=== PATIENT | male | born 1950 | race Caucasian/White ===

== ENCOUNTER 2021-05-05 12:44 | Inpatient (IN) | payer MEDICARE, SELFPAY ==
[2021-05-05] VITALS (65 sets, daily range): BP systolic 100–143; BP diastolic 64–92; PULSE 60–114; RESP 15–35; TEMP 36.7; O2SAT 90–100; BMI 26.6
--- NOTE | 2021-05-05 12:47 | XACV_ITS ---
Ht: 165 cm Wt: 68 kg BSA: 1.78 m2 Gender: Male : 1950 Exam Priority: Routine Procedure(s): Procedure Description: Diagnostic procedure Procedure Description: PCI procedure Procedure Description: Drug Eluting Coronary Stent Procedure Description: PTCA Procedure Description: Miscellaneous Procedure Description: ACT Procedure Description: Coronary Angiography Ranjit GIBBS; Diagnostic Cath Status: Emergency Diagnostic Findings * Left Main has no disease. * Circumflex has no disease. * Proximal Left Anterior Descending: moderate 50% stenosis, ROSIE: 3 flow. * Distal Right Coronary Artery: total occlusion, ROSIE: 0 flow. * Distal Right Coronary Artery: total occlusion, ROSIE: 0 flow. * Coronary angiography shows right dominance. PCI Status: Emergency PCI Indication: STEMI - Immediate PCI for STEMI Interventional Findings * Distal Right Coronary Artery: 100% stenosis treated with a Drug Eluting Stent. 0% residual stenosis, ROSIE: 3 flow. * Distal Right Coronary Artery: 100% stenosis treated with a Drug Eluting Stent. 0% residual stenosis, ROSIE: 3 flow. Conclusions 1. Distal Right Coronary Artery was treated with a Drug Eluting Stent. 2. Distal Right Coronary Artery was treated with a Drug Eluting Stent. 3. There is total occlusion coronary artery disease with two vessel disease. Recommendations * 1-Return to inpatient for close monitoring and routine cath care 2-Risk factor modification for secondary prevention 3-Statin with LDL goal <70 mg/dl, aspirin 81 mg life-long 4-Patient was pre-loaded with 180mg of Brillinta. Continue Brillinta 90mg p.o. twice daily for at least one year. We will assess at the end of one year again to continue it further or not 5-Continue optimal medical management 6-Follow up with Dr. Church in four weeks and with your PCP in one week. Interventional RX Recommendation: PCI w/o planned CABG Diagnostic RX Recommendation: PCI w/o planned CABG Pressures Phase:Rest AO : 75 / 39 ( 54 ) @ 11:11:00 AM 97 / 62 ( 78 ) @ 11:17:00 AM Clinical Evaluation EBL: 5mL-10mL Procedural Details The risks, benefits, and alternatives of sedation and/or procedure were discussed by physician. The patient agrees to continue. Procedure started. Pre-Procedure Time Out. Identified patient by full name and date of as verbalized by the patient/guarantor. Does the consent match the physician's order: Yes. Accurate & Complete Informed Consent: Yes. Inpatient/Outpatient History & Physical on Chart: Yes. If H&P is completed, is and addenduem needed: N/A; If yes, is the addendum complete: N/A Emergent. Visualize and Verify Site with Patient/Guarantor: N/A. Relevant Radiology Images available: N/A. Pre-op teaching completed and patient verbalized understanding. The risks, benefits, and alternatives of sedation and/or procedure were discussed by physician. The patient agrees to continue. [facility] Clinical Fraility Score: 4: Vulnerable. Rivet Tester Indications: ACS <= 24 hours. Chest Pain Symptom Assessment: Atypical Angina. Correct patient, site and procedure confirmed by cath team. Current diagnosis: STEMI. PERRLA. Strong, equal hand brusher hand bilaterally. Lungs clear x 5 lobes. IV Site on Arrival: 20 gauge in the right anticubital. IV Fluids: 0.9% NaCl at KVO. 0 mL infused prior to cardiac catheterization technician. Pre Procedural Pulses: bilateral radial was 3+. Oxygen started at 2liters/min via nasal canula. Physician arrived. Physician scrubbed in. Immediate Pre-Procedure Time Out. Correct Patient: Yes; Correct Procedure: Yes; Correct Site: Yes; Correct Patient Position: Yes; Correct Supplies: Yes; Dried Flammable Prep:YES Blood Products Available: N/A;. Lidocaine 1% infiltrated to the right radial. Arterial access obtained. 6 cambodian JR 4 SH guide catheter was inserted over the wire. Multiple views taken of right coronary artery. [place] guidewire was advanced through the guide catheter to lesion in the mid RCA. Balloon inserted to lesion in the mid RCA. Inflation number : 1 A AB TREK 2.50X12 RX BALLOON was prepped and advanced across the Mid RCA , then inflated to 14 CHARLES for 0:11 seconds. Results checked. Inflation number: 2 The AB TREK 2.50X12 RX BALLOON was reinflated across the Mid RCA, to 8 CHARLES for 0:05 seconds. Inflation number: 3 The AB TREK 2.50X12 RX BALLOON was reinflated across the Mid RCA, to 8 CHARLES for 0:05 seconds. Inflation number: 4 The AB TREK 2.50X12 RX BALLOON was reinflated across the Mid RCA, to 8 CHARLES for 0:06 seconds. Results checked. Balloon out. Stent inserted to lesion in the mid RCA. Inflation Number : 5 A MDT R BLANE 3.0X30 VENESSA -Lot Number# Lot #[id number] Exp 09/12/2022was prepped and advanced across the Mid RCA. The stent was deployed at 14 CHARLES for 0:30 seconds. Stent balloon out over wire. Results checked. Stent inserted to lesion in the distal RCA. Inflation Number : 6 A MDT R BLANE 3.5X15 VENESSA -Lot Number# [id number] Exp 02/15/2024 was prepped and advanced across the Mid to distal RCA. The stent was deployed at 12 CHARLES for 0:25 seconds. Stent balloon and wire out. Results checked. Balloon inserted to lesion in the mid RCA. Inflation number : 7 A MDT NC EUPHORA RX 4.47F24OR BALLOON was prepped and advanced across the Mid RCA , then inflated to 8 CHARLES for 0:30 seconds. Inflation number: 8 The MDT NC EUPHORA RX [id number] BALLOON was reinflated across the Mid RCA, to 12 CHARLES for 0:20 seconds. Balloon out. Results checked. Guide catheter out. Wire out. A 5 cambodian TIG catheter in over wire. ACT drawn. Results 216 seconds. Therapeutic limits - pre-heparin administration 90-150 seconds and monitoring heparin during a vascular procedure >250 seconds. Multiple views taken of left coronary artery. Catheter out. A TR Band was successful obtaining hemostatsis at the Right Radial artery insertion site. Post Procedure: Pulses reassessed and unchanged. PERRLA. Strong, equal hand brusher hand bilaterally. No VTE prophylaxis required. Medication's Wasted: Lidocaine 1% = 18 mL. Medication's Wasted: Nitro = 49.8 mg. Total IV fluids: 50 mL. PCI Indication: STEMI. Complications: none. Post-op diagnosis: STEMI, RCA occlusion. Estimated blood loss: 5mL-10mL. Procedure completed. Patient transferred by wheelchair to 1st floor. Vital chart was stopped. Access Site Site: Right Radial artery Sheath Size: 6 Fr Hemostasis Method: TR Band Hemostasis Success: Successful Procedure Medications Start: 12:58 PM Stop: 12:58 PM Medication: Versed Amount: 1 mg Route: I.V. Start: 12:58 PM Stop: 12:58 PM Medication: Fentanyl Amount: 50 mcg Route: I.V. Start: 1:00 PM Stop: 1:00 PM Medication: Nitrogylcerin Amount: 200 mcg Route: I.A. Start: 1:00 PM Stop: 1:00 PM Medication: 0.9% Saline Amount: 250 ml Route: I.V. bolus Start: 1:01 PM Stop: 1:01 PM Medication: Heparin Amount: 9000 units Route: I.V. Start: 1:08 PM Stop: 1:08 PM Medication: Aggrastat 12.5 mg/250 mL Amount: 34 ml Route: I.V. bolus Start: 1:08 PM Stop: 1:08 PM Medication: Aggrastat 12.5 mg/250 mL Amount: 12.2 ml/hr Route: I.V. bolus Start: 1:13 PM Stop: 1:13 PM Medication: Versed Amount: 1 mg Route: I.V. Start: 1:25 PM Stop: 1:25 PM Medication: Heparin Amount: 3000 units Route: I.V. Start: 1:30 PM Stop: 1:30 PM Medication: Brilinta Amount: 180 mg Route: P.O. I, the attending physician, have reviewed and verified all procedure medications. Yes, all medications given per verbal order History/Risk Factors Tobacco Use: Current/Recent(w/in 1 year) Report Signatures Interventional Workflow Finalized by Gavin Church MD on 05/20/2021 02:18 PM Diagnostic Workflow Finalized by Gavin Church MD on 05/20/2021 02:18 PM
--- NOTE | 2021-05-05 12:49 | W.ED.CHESTPA ---
HPI - Chest Pain General: Chief Complaint: Chest Pain Stated Complaint: STEMI Time Seen by Provider: 05/05/21 12:48 History of Present Illness: HPI narrative: This patient presents to the emergency department via air care. Patient developed chest pain approximately 2-1/2 hours prior to arrival. He has no history of cardiovascular disease and is a non-smoker. States the pain is central in his chest without significant radiation or nausea. He was seen by ground ambulance and given 325 mg of aspirin. Air care was then dispatched and they transported him to the emergency department. In route he received sublingual nitroglycerin which affected his systolic pressure and he was subsequently got a fluid bolus and his pressure normalized. He also received 75 mcg of fentanyl. He is currently still having pain. He denies any other constitutional complaints at this time. MD complaint: chest pain Severity: moderate Relieving factors: nitroglycerin Associated symptoms: Deny abdominal pain, dyspnea, fever(s), nausea, palpitations or vomiting Review of Systems Const: Denies: fever(s) or body aches Eyes: Denies: change in vision ENMT: Denies: throat pain Card: Reports: chest pain; Denies: palpitations Resp: Denies: dyspnea or productive cough GI: Denies: abdominal pain, nausea or vomiting : Denies: flank pain or dysuria Musc: Denies: neck pain, back pain or extremity pain Skin/Breast: Denies: rash Neuro: Denies: headache(s), numbness in extremities or weakness in extremities Bert/Lymph: Denies: easy bruising Physical Exam Const: COMMON NORMALS: patient oriented x3, healthy appearing and alert HENMT: COMMON NORMALS: normocephalic HEAD & SCALP: normocephalic MOUTH: Normal oral and palatal mucosa present Eye: COMMON NORMALS: Equal, round and reactive pupils present and no scleral icterus PUPIL: Yes Equal, round and reactive pupils present Neck/C-Spine: COMMON NORMALS: full ROM, supple and no JVD Chest: COMMONS NORMALS: normal inspection of the chest Resp: COMMON NORMALS: normal respiratory effort, No retractions and clear to auscultation bilaterally EFFORT & INSPECTION: Yes able to speak in complete sentences AUSCULTATION: clear to auscultation bilaterally Cardio: COMMON NORMALS: no JVD, regular rate, regular rhythm, No murmurs present (Cardio) and Peripheral pulses 2+ throughout RATE: regular rate RHYTHM: regular rhythm PERIPHERAL PULSES: Peripheral pulses 2+ throughout GI: COMMON NORMALS: Normal to inspection, nondistended, normoactive bowel sounds present and Soft to palpation PALPATION: Yes Soft to palpation Back/Pelvis: COMMON NORMALS: thoracic and lumbar spine normal to inspection and thoraco-lumbar ROM normal Extremity: COMMON NORMALS: normal to inspection, capillary refill normal, no clubbing, cyanosis or edema and no pedal edema Neuro: MAURA COMA SCALE: document GCS findings COMMON NORMALS: patient oriented x3 and no focal motor deficits SENSORIUM/ORIENTATION: Yes alert Skin: COMMON NORMALS: no rashes or lesions noted and no jaundice GENERAL SKIN EXAM: no rashes or lesions noted Course Reevaluation(s): Reevaluation #1: Dr. Church was present in the emergency department and interviewed the patient and patient was transferred to the cardiac Wedding Transportation Driver. Stable time of transfer. His prehospital EKG showed ST elevations in contiguous leads II, III and aVF consistent with an inferior wall UT. Discharge Plan Discharge Patient Disposition: Admitted As Inpatient Condition: Stable Coding Level of Care Code ED Storage Specialist for Abi Pelletier
--- NOTE | 2021-05-05 12:52 | PC.NURSE ---
ERP and carpenter foreman at bedside to assess. Vitals taken, pt shaved, and clothes removed. Pt taken to dairy and food laboratory assistant by staff at approximately 1245.
--- NOTE | 2021-05-05 12:53 | PM.HP ---
Providers/Chief Complaint Chief Complaint: STEMI History of Present Illness Salazar Escamilal is a 71 year old male past medical history significant for chronic tobacco abuse for the last couple of days was experiencing a off-and-on chest pain. 2 hours ago pain became more consistent and severe he decided to call 911. On the scene EKG was performed which showed ST elevation in the inferior leads with reciprocal changes. Patient was given fentanyl and aspirin as per ACS protocol he was flown to the ER on the chopper, during the flight nitroglycerin was given with drop the blood pressure. I just saw the patient in the ER we will take him to the Forest Economist. Medications/Allergies Allergies Allergy/AdvReac Type Severity Reaction Status Date / Time No Known Allergies Allergy Verified 05/05/21 12:52 Vitals/I&O/Wt Last Vital Signs Temp 98.0 F 05/05/21 12:46 Pulse 114 H 05/05/21 12:46 Resp 22 H 05/05/21 12:46 BP 128/81 05/05/21 12:46 Pulse Ox 100 05/05/21 12:46 Weight last 48 hrs Weight 180 lb Physical Exam Narrative: EXAM NARRATIVE: GENERAL: Patient is alert, awake and oriented x3. NECK: No jugular vein distension. HEENT: No cyanosis. No icterus. No pallor. HEART: Regular S1 and S2. No murmur, rub or gallop. LUNGS: Clear to auscultate bilaterally. ABDOMEN: Soft, nontender and nondistended. Positive bowel sounds. No guarding, rebound or tenderness. CENTRAL NERVOUS SYSTEM: Grossly nonfocal. EXTREMITIES: Lower extremities without edema bilaterally. Pulses palpable in the lower extremities, both dorsalis pedis and posterior tibial. A&P Assessment and plan (1) ST elevation NE (STEMI): Status: Acute Qualifiers: Involved coronary artery: right coronary artery Qualified Code(s): I21.11 - ST elevation (STEMI) myocardial infarction involving right coronary artery (2) Smoking: Advised quitting smoking Status: Acute Additional A&P Information We will load patient with heparin, antiplatelet will take him directly to the Forest Economist for emergent left heart cath/PCI. Patient has been explained all risk benefit and alternative for the procedure including stroke contrast-induced nephropathy urgent emergent bypass surgery hematoma infection. He would like to proceed with it. Attestations Medical Necessity Statement*: I am expecting his stay to cross more than two midnights. Coding Level of Care Code New Pt Acute Structural Steel Shop Supervisor for Yimig Prabhu Patient Type New History Comprehensive Exam Comprehensive Medical Decision Making High Complexity Diagnoses ST elevation NE (STEMI) I21.11 Involved coronary artery: right coronary artery Smoking F17.200
--- NOTE | 2021-05-05 13:43 | USCV_ITS ---
Salazar Escamilla Age: 71 Gender: M : 1950 Exam Date: 05/05/2021 15:00 Ordering Phys: Gavin Church MD ([email or web address]) Technologist: Exam Location: [facility] [place] Indication: st elev mi BP: 129 / 86 HR: Rhythm: Sinus Technical Quality: Adequate MEASUREMENTS (Male / Female) Normal Values 2D ECHO LV Diastolic Diameter PLAX 4.5 cm 4.2 - 5.9 / 3.9 - 5.3 cm LV Systolic Diameter PLAX 2.6 cm IVS Diastolic Thickness 1.1 cm 0.6 - 1.0 / 0.6 - 0.9 cm IVS Systolic Thickness 1.3 cm LVPW Diastolic Thickness 1.2 cm 0.6 - 1.0 / 0.6 - 0.9 cm LVPW Systolic Thickness 1.3 cm LVOT Diameter 2.0 cm LV Ejection Fraction 2D Teich 73.8 % LA Diameter 3.1 cm LA Width 3.3 cm LA Height 4.9 cm RA Width 2.4 cm RA Height 3.8 cm DOPPLER AV Peak Velocity 126.0 cm/s LVOT Peak Velocity 96.0 cm/s AV Area Cont Eq vti 2.3 cm squared AV Area Cont Eq pk 2.4 cm squared MV Area PHT 5.0 cm squared Mitral E to A Ratio 1.3 MV E' Velocity 50.0 cm/s Mitral E to MV E' Ratio 10.4 Mitral E to LV E' Lateral Ratio 10.7 Mitral E to LV E' Septal Ratio 10.3 TR Peak Velocity 129.0 cm/s TR Peak Gradient 6.7 mmHg FINDINGS Left Ventricle Normal left ventricular cavity size. Normal left ventricular systolic function. No regional wall motion abnormalities. Left ventricular ejection fraction is estimated at 60 %. Grade I/IV diastolic dysfunction (abnormal relaxation filling pattern), normal to mildly elevated filling pressures. Right Ventricle The right ventricle is normal in size and function. RVSP could not be calculated due to incomplete tricuspid regurgitation velocity profile. Right Atrium The right atrium is normal in size. Left Atrium The left atrium is normal in size. Mitral Valve Structurally normal mitral valve without significant stenosis or prolapse. There is no mitral regurgitation. Aortic Valve Structurally normal aortic valve without significant sclerosis or stenosis. There is no aortic regurgitation. Tricuspid Valve Structurally normal tricuspid valve without significant stenosis or regurgitation. Pulmonic Valve Structurally normal pulmonic valve without significant stenosis. There is no pulmonic regurgitation. Pericardium Normal pericardium without effusion. Aorta Normal ascending aorta dimension. CONCLUSIONS 1-Normal left ventricular cavity size. Normal left ventricular systolic function. No regional wall motion abnormalities. Left ventricular ejection fraction is estimated at 60 %. Grade I/IV diastolic dysfunction (abnormal relaxation filling pattern), normal to mildly elevated filling pressures. 2-The right ventricle is normal in size and function. RVSP could not be calculated due to incomplete tricuspid regurgitation velocity profile. 3-There is no pericardial effusion. 4-No significant valve abnormalities. 5-Right atrial pressure is around 5 mm of mercury. 6-There are no prior echocardiogram studies to compare. Gavin Church MD (Electronically Signed) Final Date: 08 May 2021 18:18 S
[2021-05-05] MEDS: sodium chloride 0.9% 1,000 ML 100 ML IV (16:03)
[2021-05-05] MEDS: ticagrelor 90 mg Tablet PO (17:34)
--- NOTE | 2021-05-05 18:00 | PC.NURSE ---
release of info pt verbal consent to release info of his diagnosis and prognosis to [facility] rn case mgr due to his grandson is on leave from . reference # given for this call #[id number]
--- NOTE | 2021-05-05 20:09 | PC.NURSE ---
Shift Note Frequent safety and comfort rounds continue. Orders and/or nursing care completed as indicated. Patient monitored for response to intervention and treatment(s). Education provided includes post angiogram activity restrictions, brilinta, post heart attack. 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 Will continue to monitor. 1900 Tr Band off. No hematoma, swelling or bleeding. Radial pulse is palpable. VS monitored and w/in normal limits.
[2021-05-05] MEDS: atorvastatin 40 mg Tablet 80 MG PO (20:25)
[2021-05-06] VITALS (9 sets, daily range): BP systolic 109–161; BP diastolic 62–90; PULSE 61–85; RESP 22–30; TEMP 36.9–37.1; O2SAT 93–95
[2021-05-06 06:30] LABS: Basophils % 0.4 %; Eosinophils # 0.1 10^3/uL (0.0-0.8); Eosinophils % 1.3 %; Hematocrit 40.3 % (42.0-52.0); Hemoglobin 13.1 g/dL (11.7-16.6); Lymphocytes # 1.4 10^3/uL (0.8-4.8); Lymphocytes % 13.9 %; Mean Corpuscular HGB Conc 32.5 g/dL (30.0-36.0); Mean Corpuscular Hemoglobin 28.9 pg (28.0-34.0); Mean Platelet Volume 10.9 fL (7.4-10.4); Monocytes # 0.9 10^3/uL (0.2-0.9); Monocytes % 9.1 %; Neutrophils # 7.53 10^3/uL (1.8-7.7); Nucleated Red Blood Cells % 0 %; Platelet Count 212 10^3/cmm (130-400); Red Blood Count 4.53 10^6/uL (4.1-5.3); Red Cell Distribution Width 13.2 % (12.1-15.1)
[2021-05-06 06:51] LABS: Anion Gap 14.4 (5-19); Blood Urea Nitrogen 11 mg/dL (8-23); Calcium 8.1 mg/dL (8.5-10.5); Carbon Dioxide 24 mmol/L (22-29); Chloride 103 mmol/L (98-107); Creatinine Clr Calc Pharmacy 91.2416; Glomerular Filtration Rate 111.5 mL/min (90-130); Glucose 103 mg/dL (65-115); Osmolality Calculated 284 mOsm/kg (285-295); Potassium 4.4 mmol/L (3.5-5.1); Sodium 137 mmol/L (136-145)
[2021-05-06 07:15] LABS: Troponin T (5th) Once 6857 ng/L (0-15)
[2021-05-06] MEDS: aspirin 81 mg EC Tablet PO (08:07)
[2021-05-06] MEDS: ticagrelor 90 mg Tablet PO ×2 (08:07→18:27)
--- NOTE | 2021-05-06 09:28 | PM.PN ---
Subjective Subjective: Interval history: No more overnight event for generation troponin was 5000. Patient had short runs of nonsustained VT post PCI most likely reperfusion arrhythmia. Medications: Reviewed: Yes Vitals/I&O/Wt Last Vital Signs Temp 98.6 F 05/06/21 08:00 Pulse 77 05/06/21 08:12 Resp 30 H 05/06/21 08:12 BP 114/62 05/06/21 08:12 Pulse Ox 93 05/06/21 03:32 05/05/21 05/06/21 05/06/21 22:59 06:59 14:59 Intake Total 1755.3 / 1755.3 500 / 2255.3 473 / 473 Output Total 250 / 250 Balance 1505.3 / 1505.3 500 / 2005.3 473 / 473 Weight last 48 hrs Weight 180 lb Physical Exam Narrative: EXAM NARRATIVE: GENERAL: Patient is alert, awake and oriented x3. NECK: No jugular vein distension. HEENT: No cyanosis. No icterus. No pallor. HEART: Regular S1 and S2. No murmur, rub or gallop. LUNGS: Clear to auscultate bilaterally. ABDOMEN: Soft, nontender and nondistended. Positive bowel sounds. No guarding, rebound or tenderness. CENTRAL NERVOUS SYSTEM: Grossly nonfocal. EXTREMITIES: Lower extremities without edema bilaterally. Pulses palpable in the lower extremities, both dorsalis pedis and posterior tibial. Data : 05/06/21 05:43 05/06/21 05:43 A&P Assessment and plan (1) ST elevation [place] (STEMI): Status post PCI to mid to distal RCA. Echocardiogram is pending we will add metoprolol to the regimen continue aspirin statin and antiplatelet in the form of Brilinta. We will watch him for next any 4 hours most likely discharge tomorrow. Advised to move around. Right wrist looks good Status: Acute Qualifiers: Involved coronary artery: right coronary artery Qualified Code(s): I21.11 - ST elevation (STEMI) myocardial infarction involving right coronary artery (2) Smoking: Advised quitting smoking Status: Acute Additional A&P Information We will load patient with heparin, antiplatelet will take him directly to the Router Tender for emergent left heart cath/PCI. Patient has been explained all risk benefit and alternative for the procedure including stroke contrast-induced nephropathy urgent emergent bypass surgery hematoma infection. He would like to proceed with it. Attestations Medical Necessity Statement*: Patient require continuation hospitalization for above defined care. Coding Level of Care Code Established Pt Acute Live Ammunition Inspector for Yimig Fwvicki Patient Type Established History Detailed Exam Detailed Medical Decision Making Moderate Complexity Diagnoses ST elevation AL (STEMI) I21.11 Involved coronary artery: right coronary artery Smoking F17.200
[2021-05-06] MEDS: metoprolol succinate ER (24 HR) 25 mg Tablet 12.5 MG PO (09:48)
--- NOTE | 2021-05-06 20:06 | PC.NURSE ---
Shift Note/bedside report given to night nurse Frequent safety and comfort rounds continue. Orders and/or nursing care completed as indicated. Patient monitored for response to intervention and treatment(s). Education provided includes post heart attack meds actions, dosing and possible s/e, signs and symptoms of heart attack. Patient and/or paper sales representative verbalizes understanding. Will continue to monitor. arrythmias recall noted on the monitor since last night and this shift. pt has been having occassional burst of non sustained vtach on the monitor. Dr. valenzuela is notified and started pt on Metoprolol. Pt has been ambulating down hallways. denies any chest discomfort or chest pain whole shift. pt stated he feels much better. he reports a chronic that has been going on for yrs per patient statement that he has short lived palpitations and short of breath when he feels this. informed pt to notify nurse curt if symptoms are getting worse. pt verbalizes understanding. provided pt with cardiac rehab info packet. will keep monitoring.
[2021-05-06] MEDS: atorvastatin 40 mg Tablet 80 MG PO (20:47)
[2021-05-07 04:00] VITALS: BP 147/91; PULSE 88; RESP 21; TEMP 36.3; O2SAT 94
[2021-05-07 06:00] VITALS: PULSE 71
[2021-05-07 08:00] VITALS: BP 136/71; PULSE 77; RESP 17; TEMP 36.7; O2SAT 99
[2021-05-07] MEDS: metoprolol succinate ER (24 HR) 25 mg Tablet 12.5 MG PO (08:53)
[2021-05-07] MEDS: aspirin 81 mg EC Tablet PO (08:53)
[2021-05-07] MEDS: ticagrelor 90 mg Tablet PO (08:53)
--- NOTE | 2021-05-07 09:22 | PC.CHAP ---
Pastoral Care Encounter/Spiritual Assessment Type of Contact [] Declined patent agent visit [] Patient/Family/Request visit [] Outpatient visit [] Follow-up visit [] Physician referral [] Code/Alert [x] Routine visit [] Staff referral [] Actively dying [] Patient sleeping [x] Family support [] [] Out of room [] Palliative care [] [] Receiving care in room [] Pre-surgical visit [] Trauma [] Long length of stay [] ICU visit [] Other: Relational/Emotional Strength [] Patient feels connected with others/family/visitors/staff [] Distress [] Loneliness/isolation [] Abandonment Spirituality of Patient [] Person of Hannah [] Attends Restorationist of their Hannah [] Believes in Prayer [] Reads Bible or Episcopalian materials [] There are Spiritual issues to be addressed Bee Keeper Interventions [x] Prayer [x] Active listening [x] Non-anxious presence [x] Spiritual/emotional support [] Crisis/trauma care [] Spiritual counseling [] Bereavement support [] Provided bereavement packet [] Provided Bible/devotional materials [] Provided toy/stuffed animal, coloring book to patient or family member [] Provided Communion [] Anointing/[place] [] Salvation [x] Completed spiritual assessment [] Other: Impact on Illness or Injury [] Angry [] Fearful [] Anxious [] Often cries [] Exhaustion [] Unable to work [] Unable to attend sabianist [] Unable to walk/stand [] Unable to read [] Unable to drive [] Unable to eat/drink [] Unable to sleep [] Unable to be with family [] Patient intubated [] Other: Summary preparing to discharge... thankful for healing Time spent with patient 5 min
[2021-05-07 12:00] VITALS: BP 131/68; PULSE 72; RESP 17; TEMP 36.3; O2SAT 93
--- NOTE | 2021-05-07 12:35 | PM.DCS ---
Discharge Providers Date of Admission: 05/05/21 14:05 Date of Discharge: May 07, 2021 Attending Provider at Admission: Gavin Church MD Attending Provider at Discharge: Gavin Church MD Diagnoses at Discharge Discharge Diagnosis (1) ST elevation VA (STEMI): Status: Resolved Qualifiers: Involved coronary artery: right coronary artery Qualified Code(s): I21.11 - ST elevation (STEMI) myocardial infarction involving right coronary artery (2) Smoking: Status: Acute Reason for Visit Reason for Visit: STEMI Hospital Course Hospital Course 71-year-old male past medical history significant for for hypertension and tobacco abuse presented with ST elevation VA of inferior wall he was taken to Shortage Worker noted to have mid right coronary artery occlusion treated with drug-eluting stent. Post PCI course remains uncomplicated his medicine were optimized. No complication noted over next couple of days. He is stable and tolerating medicine well. He has been started on Brilinta aspirin statin and AMOS inhibitor along with metoprolol. We will follow him up in the cardiology clinic in 7 days. He has been discussed regarding quitting smoking he told me that he will. Physical Exam Narrative: EXAM NARRATIVE: GENERAL: Patient is alert, awake and oriented x3. NECK: No jugular vein distension. HEENT: No cyanosis. No icterus. No pallor. HEART: Regular S1 and S2. No murmur, rub or gallop. LUNGS: Clear to auscultate bilaterally. ABDOMEN: Soft, nontender and nondistended. Positive bowel sounds. No guarding, rebound or tenderness. CENTRAL NERVOUS SYSTEM: Grossly nonfocal. EXTREMITIES: Lower extremities without edema bilaterally. Pulses palpable in the lower extremities, both dorsalis pedis and posterior tibial. 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 echo complete * [id number] Routine Ultrasound 05/05/21 13:43 Taken Vitals: Last Vital Signs Temp 98.1 F 05/07/21 08:00 Pulse 77 05/07/21 08:00 Resp 17 05/07/21 08:00 BP 136/71 05/07/21 08:00 Pulse Ox 99 05/07/21 08:00 Discharge Plan Discharge Patient Disposition: Home Condition: Stable Prescriptions: New aspirin 81 mg Tablet,Delayed Release (Dr/Ec) 81 mg PO DAILY Qty: 90 RF: 4 atorvastatin 40 mg Tablet 80 mg PO BEDTIME Qty: 30 RF: 4 metoprolol succinate 25 mg Tablet Extended Release 24 Hr 12.5 mg PO DAILY Qty: 90 RF: 3 Brilinta 90 mg Tablet 90 mg PO BID Qty: 60 RF: 6 lisinopril 2.5 mg tablet 2.5 mg PO DAILY Qty: 30 RF: 4 Discharge Orders: Discharge Order (Routine); Ordered 05/07/21 Ordered By: Gavin Church Referrals: Gavin Church MD [Physician] - 07/03/21 2:00 pm Laura Guevara FNP [Nurse Practitioner] - 05/15/21 3:00 pm Discharge Diet: Cardiac Discharge Activity: Increase activity as tolerated Patient Instructions: Metoprolol (By mouth), Lisinopril (By mouth), Ticagrelor (By mouth) (Brilinta), Heart Attack (DC), Heart Catheterization (DC) Activity Restrictions/Additional Instructions: Follow-up with Ms. Laura Guevara cardiology nurse practitioner in 7 days. Follow-up with Dr. Church in 6 to 8 weeks. Discharge Attestations Time Spent in Discharge Care*: less than 30 min Specific Discharge Activities: educating patient Quality Metrics Clinical Quality Measures During this hospital stay, did patient experience: AMI Clinical Trial Participant: No Contraindication to aspirin (AMI): Aspirin given Contraindication to statin: Statin prescribed Contraindication to PCI: PCI performed Coding Level of Care Code New Pt Acute Chg FW DC note Patient Type New History Detailed Exam Detailed Medical Decision Making Moderate Complexity Diagnoses ST elevation VA (STEMI) I21.11 Involved coronary artery: right coronary artery Smoking F17.200
[2021-05-07 12:45] VITALS: BP 131/68; PULSE 72; RESP 17; TEMP 36.3; O2SAT 93
== END 2021-05-07 13:10 | disposition home or self-care (01) | DRG 247 ==
LOC: ER 12:50 → CCL 12:53 → CSU 14:23
PROVIDERS: Admitting Provider Internal Medicine Cardiovascular Disease; Emergency Provider Emergency Medicine; Visit Provider Internal Medicine Cardiovascular Disease
PROC: 027035Z Dilation of Coronary Artery, One Artery with Two Drug-eluting Intraluminal Devices, Percutaneous Approach (ICD-10-PCS; principal; 2021-05-05 12:50)
PROC: 027035Z Dilation of Coronary Artery, One Artery with Two Drug-eluting Intraluminal Devices, Percutaneous Approach (ICD-10-PCS; 2021-05-05 12:50)
DX: I21.11 ST elevation (STEMI) myocardial infarction involving right coronary artery (principal); F17.210 Nicotine dependence, cigarettes, uncomplicated; I10 Essential (primary) hypertension
CPT/HCPCS: 80048; 84484; 85025; 85347; 90471; 90686; 93306; 93454; 99285; C1725; C1769; C1874; C1887; C1894; C9600; J1644; J2250; J3010; J3246; J7030; Q9967

== ENCOUNTER → 2021-05-15 16:00 | Outpatient (BNVA) | payer MEDICARE, SELFPAY | PROVIDERS: PCP Family Medicine; Visit Provider Nurse Practitioner Family | DX: I21.3 ST elevation (STEMI) myocardial infarction of unspecified site (principal); Z95.5 Presence of coronary angioplasty implant and graft | CPT/HCPCS: 80048 ==

== ENCOUNTER → 2022-03-19 15:20 | Outpatient (BNVA) | payer MEDICARE, SELFPAY | PROVIDERS: PCP Family Medicine; Visit Provider Nurse Practitioner Family | DX: I25.10 Atherosclerotic heart disease of native coronary artery without angina pectoris (principal); Z87.891 Personal history of nicotine dependence; I10 Essential (primary) hypertension | CPT/HCPCS: 99214 ==

== ENCOUNTER 2022-04-29 09:13 | Outpatient (CLI) | payer MEDICARE, SELFPAY ==
--- NOTE | 2022-04-29 09:15 | USCV_ITS ---
Salazar Escamilla Age: 72 Gender: M : 1950 Exam Date: 04/29/2022 09:22 Ordering Phys: Laura Guevara Technologist: Fan Julian Exam Location: [facility] [place] Indication: CARDIOMYOPATHY BP: 124 / 73 HR: 54 Rhythm: Sinus Technical Quality: Adequate MEASUREMENTS (Male / Female) Normal Values 2D ECHO LV Diastolic Diameter PLAX 4.3 cm 4.2 - 5.9 / 3.9 - 5.3 cm LV Systolic Diameter PLAX 2.2 cm IVS Diastolic Thickness 1.3 cm 0.6 - 1.0 / 0.6 - 0.9 cm IVS Systolic Thickness 1.1 cm LVPW Diastolic Thickness 1.2 cm 0.6 - 1.0 / 0.6 - 0.9 cm LVPW Systolic Thickness 1.2 cm LVOT Diameter 2.0 cm LV Ejection Fraction 2D Teich 74.7 % LV Ejection Fraction MOD 2C 71.8 % LV Ejection Fraction 2C AL 71.6 % LA Diameter 3.4 cm Aorta at Sinotubular Diameter 2.1 cm IVC Diameter 1.3 cm M-MODE Aortic Annulus Diameter 3.7 cm LA Ao Ratio MM 1.0 MV E Point Septal Separation 1.2 cm DOPPLER AV Peak Velocity 127.0 cm/s LVOT Peak Velocity 87.0 cm/s AV Area Cont Eq vti 2.4 cm squared AV Area Cont Eq pk 2.2 cm squared MV Area PHT 5.0 cm squared Mitral E to A Ratio 1.1 MV E' Velocity 56.5 cm/s Mitral E to MV E' Ratio 7.9 Mitral E to LV E' Lateral Ratio 6.9 Mitral E to LV E' Septal Ratio 9.2 TR Peak Velocity 178.0 cm/s TR Peak Gradient 12.7 mmHg TV Peak E Velocity 93.0 cm/s Right Atrial Pressure 3.0 mmHg Pulmonary Artery Systolic Pressu 15.7 mmHg RV Acceleration Time 0.1 s FINDINGS Left Ventricle Normal left ventricular size and systolic function, EF 62 %. No regional wall motion abnormalities. Right Ventricle The right ventricle is normal in size and function. Right Atrium The right atrium is normal in size. Left Atrium The left atrium is normal in size. Mitral Valve Thickened mitral valve. Mild-moderate mitral valve regurgitation. Aortic Valve Thickened aortic valve. Tricuspid Valve Trace tricuspid valve regurgitation. Pulmonic Valve Pulmonic valve not well visualized. Pericardium Normal pericardium without effusion. Aorta Normal ascending aorta dimension. IVC Normal inferior vena cava. CONCLUSIONS Normal left ventricular size and systolic function, EF 62 %. No regional wall motion abnormalities. Thickened mitral valve. Mild-moderate mitral valve regurgitation. Thickened aortic valve. Trace tricuspid valve regurgitation. Estimated pulmonary artery peak systolic pressure, within normal limits There is no pericardial effusion. There are no intracardiac masses. No similar previous studies are available for comparison Dr Master Qiu MD [facility] (Electronically Signed) Final Date: 30 April 2022 20:03 S
== END 2022-04-29 09:14 | disposition home or self-care (01) ==
LOC: RAD 09:14
PROVIDERS: PCP Family Medicine; Visit Provider Nurse Practitioner Family
DX: I25.10 Atherosclerotic heart disease of native coronary artery without angina pectoris (principal); I25.2 Old myocardial infarction; I34.0 Nonrheumatic mitral (valve) insufficiency
CPT/HCPCS: 93306

== ENCOUNTER → 2022-07-03 13:03 | Outpatient (BNVA) | payer MEDICARE, SELFPAY | PROVIDERS: PCP Electrodiagnostic Medicine; Visit Provider Internal Medicine | DX: I25.10 Atherosclerotic heart disease of native coronary artery without angina pectoris (principal); Z87.891 Personal history of nicotine dependence; I10 Essential (primary) hypertension | CPT/HCPCS: 99214 ==

== ENCOUNTER 2022-10-21 06:00 | Outpatient (RCR) | payer MEDICARE, SELFPAY | END 2022-11-20 23:59 | disposition home or self-care (01) | LOC: APT 06:00 | PROVIDERS: Visit Provider Orthopaedic Surgery | DX: Z47.1 Aftercare following joint replacement surgery (principal); Z96.652 Presence of left artificial knee joint | CPT/HCPCS: 97110; 97163 ==

== ENCOUNTER 2022-11-21 06:00 | Outpatient (RCR) | payer MEDICARE, SELFPAY | END 2022-12-20 23:59 | disposition home or self-care (01) | LOC: APT 06:00 | PROVIDERS: Visit Provider Orthopaedic Surgery | DX: Z47.1 Aftercare following joint replacement surgery (principal); Z96.652 Presence of left artificial knee joint | CPT/HCPCS: 97110; 97112; 97530 ==

== ENCOUNTER 2024-04-01 08:00 | Outpatient (CLI) | payer MEDICARE, SELFPAY ==
--- NOTE | 2024-04-01 08:12 | CT_ITS ---
WS: [id number] LDCT LUNG CANCER SCREENING TECHNIQUE: Noncontrast CT of the chest with coronal and sagittal reformatted images. CLINICAL INFORMATION: NICOTINE DEPENDENCE,CIGARETTES COMPARISON: None. DLP: 61.91 mGy.cm DIvol: Mean CTDIvol: 1.40 (mGy) All CT scans at [facility] use at least one of these dose optimization techniques: automat ed exposure control; mA and/or kV adjustment per patient size (includes targeted exams where dose is matched to clinical indication); or iterative reconstruction. FINDINGS: Subsegmental atelectasis in the lingula. Noncalcified nodule in the lingula. Tiny noncalcified nodule LEFT lower lobe measuring 2 mm. Tiny calcified granuloma LEFT lower lobe. Aortic calcification. Normal caliber thoracic aorta. Coronary calcification. No mediastinal or hilar lymphadenopathy. No axillary lymphadenopathy. Adrenal glands are normal. Normal GE junction. CT/CT lung screening [id number] IMPRESSION: LUNG-RADS: 2-Benign Appearance or Behavior FOLLOW UP: 12 Month: Continue annual screening with LDCT
== END 2024-04-01 08:06 | disposition home or self-care (01) ==
PROVIDERS: PCP Electrodiagnostic Medicine; Visit Provider Electrodiagnostic Medicine
DX: Z12.2 Encounter for screening for malignant neoplasm of respiratory organs (principal); F17.210 Nicotine dependence, cigarettes, uncomplicated
CPT/HCPCS: 71271